=== PATIENT | male | born 1980 | race Caucasian/White ===

== ENCOUNTER 2019-09-23 01:01 | Emergency (ER) | payer OTHER, SELFPAY ==
[2019-09-23 01:02] VITALS: BP 150/99; PULSE 104; RESP 20; TEMP 37.1; O2SAT 97; BMI 32.3
--- NOTE | 2019-09-23 01:16 | EKG12_ITS ---
Test Reason : PALPITATIONS Blood Pressure : / mmHG Vent. Rate : 103 BPM Atrial Rate : 103 BPM P-R Int : 188 ms QRS Dur : 090 ms QT Int : 342 ms P-R-T Axes : 038 033 034 degrees QTc Int : 448 ms Sinus tachycardia Otherwise normal ECG Confirmed by GWENDOLYN NGUYEN, OLESYA ([id number]), editor dictionary JOSI ZAMORA ([id number]) on 09/26/2019 12:31:26 PM Referred By: MAE Confirmed By:OLESYA SNOW MD
--- NOTE | 2019-09-23 01:16 | ED.VIS.GEN ---
History of Present Illness Chief Complaint: Palpitations Informant: Patient Narrative: Stated he has a history of PVCs and was on a beta-ky remotely several years ago. Has not been on this however for some time. Developed some palpitations tonight thinks he might have a recurrent PVCs. He drinks a few cups of Diet Coke per day as well as 1 coffee. Denies any other stimulants. He has seen cardiology for this approximately 10 years ago. Denies any other symptoms. He noticed after dinner he started having palpitations. Currently he is having no symptoms. Denies other cardiac history. Past Medical History - Allergies and Home Meds Allergies/Adverse Reactions: Allergies Sulfa (Sulfonamide Antibiotics) Allergy (Verified 09/23/19 01:05) FASH AND FEVER Primary Care Physician: NOT,DEFINED [NON-STAFF] - Prior records reviewed: Yes Past Medical History: - - PVCs Surgical History: noncontributory Lives: With Family Smoking Status: Never smoker Alcohol: None Drugs: None Review of Systems General: Denies: Chills, Fever, Sweats Eyes: Denies: Visual changes - bilaterally, Diplopia ENT: Denies: Rhinorrhea, Sore throat Cardiovascular: Reports: Palpitations. Denies: Chest pain Respiratory: Denies: Dyspnea, Cough, Dyspnea on exertion Gastrointestinal: Denies: Abdominal pain, Nausea, Vomiting, Diarrhea, Melena, Hematochezia Genitourinary: Denies: Dysuria, Hematuria, Frequency Musculoskeletal: Denies: Back pain, Extremity Pain Skin: Denies: Rash, Wounds Neurological: Denies: Headache, Weakness, Numbness Physical Exam Vital Signs/Narrative: Vital Signs Temp Pulse Resp BP Pulse Ox 09/23/19 01:02 98.7 F 104 H 20 H 150/99 H 97 General: Well nourished, Well developed, No Acute Distress Head: Normocephalic, Atraumatic Eyes: Perrl, EOMI ENT: Moist mucous membranes, No rhinorrhea Neck: Supple, Nontender Cardiovascular: Regular rate, Regular rhythm, No murmurs Respiratory: No distress, CTA bilaterally, Chest nontender Abdomen: Soft, Nontender, Nondistended, Normal bowel sounds Back: Nontender, Normal Inspection Extremities: Nontender, No edema Skin: Normal color, No rash Neurological: Alert, Oriented x3, Cranial nerves II-XII grossly intact, Normal Strength, Normal Sensation Psychological: Normal affect, Normal Mood Diagnostic/Tx/Re-eval - Medical Decision Making EKG obtained shows sinus rhythm at a rate of 103. No ischemia or arrhythmia. Patient watched on the monitor without symptoms. Patient be discharged with a Holter monitor to follow-up as an outpatient with his family doctor who can interpret the results. Instructed to try to avoid stimulants including caffeine. I suspect he is having recurrent PVCs. ED Disposition - Plan for ED Patient: Disposition: Home or Assisted Living Diagnosis: Palpitations Instructions: Palpitations Referrals: NOT,DEFINED [NON-STAFF] -
[2019-09-23 02:07] VITALS: BP 121/78; PULSE 84; RESP 18; O2SAT 98
--- NOTE | 2019-09-23 02:07 | ED.RN ---
THIS NURSE REVIEWED D/C INSTRUCTIONS WITH PT. PT VERBALIZED UNDERSTANDING OF INSTRUCTIONS. PT DENIES HOLTER MONITOR. PT DENIES FURTHER NEEDS OR QUESTIONS AT THIS TIME. PT AMBULATES FROM ROOM ON OWN WITHOUT ASSISTANCE FROM STAFF
== END 2019-09-23 02:09 | disposition home or self-care (01) ==
PROVIDERS: Emergency Provider Emergency Medicine
DX: R00.2 Palpitations (principal)
CPT/HCPCS: 93005; 99282

== ENCOUNTER 2020-12-14 13:44 | Outpatient (RCR) | payer OTHER, SELFPAY | END 2021-02-26 23:59 | LOC: IMMUN 13:44 | PROVIDERS: Referring Provider Family Medicine; Visit Provider Family Medicine | DX: Z23 Encounter for immunization (principal) | CPT/HCPCS: 0001A; 0002A; 91300 ==

== ENCOUNTER 2021-09-24 14:06 | Outpatient (CLI) | payer OTHER, SELFPAY | END 2021-09-24 23:59 | disposition short-term general hospital (02) | LOC: LABSPEC 14:10 | PROVIDERS: Visit Provider Nurse Practitioner Family | DX: M79.10 Myalgia, unspecified site (principal); R51.9 Headache, unspecified | CPT/HCPCS: 87635; U0003; U0005 ==

== ENCOUNTER 2022-01-07 13:13 | Outpatient (CLI) | payer OTHER, SELFPAY ==
[2022-01-07 13:50] LABS: Free T3 3.2 pg/mL (2.18-3.98); T4 Free Direct 1.36 ng/dL (0.76-1.46); Thyroid Stim Hormone (TSH) 0.79 uIU/mL (0.358-3.74)
== END 2022-01-07 23:59 | disposition home or self-care (01) ==
PROVIDERS: Visit Provider Nurse Practitioner Family
DX: E03.9 Hypothyroidism, unspecified (principal)
CPT/HCPCS: 84436; 84439; 84443; 84481

== ENCOUNTER → 2022-08-05 | Outpatient (CLI) | payer OTHER, SELFPAY ==
[2022-08-05 20:26] LABS: Absolute Lymphocyte Count 1.87 X10^3/uL (0.83-4.51); Absolute Neutrophil Count 4.3 X10^3/uL (2.0-7.7); Basophil# 0.07 X10^3/uL; Eosinophil# 0.18 X10^3/uL; Eosinophils% 2.5 % (0-5); Hematocrit 46.3 % (40-54); Hemoglobin 16.2 g/dL (13.0-16.5); Lymphocyte # 1.87 X10^3/ul (0.83-4.51); Lymphocyte % 26.3 % (19-41); Mean Corpuscular Hgb 28.3 pg (27.0-32.0); Mean Corpuscular Volume 80.9 fL (80-94); Mean Platelet Vol. 10.7 fl (6.2-12.0); Monocyte# 0.61 X10^3/uL; Monocyte% 8.6 % (0-10); NRBC Flagged by Analyzer 0 % (0-5); Neutrophil # 4.34 X10^3/uL (2.7-7.7); Neutrophil % 61.2 % (47-70); Platelet Count 291 K/mm3 (150-450); RBC Distribution Width CV 12.9 % (11.6-14.6); Red Blood Count 5.72 M/mm3 (4.6-6.2); White Blood Count 7.1 K/mm3 (4.4-11.0)
[2022-08-05 20:46] LABS: ALB/GLOB Ratio 1.4 RATIO (0.9-2.4); AST(SGOT) 17 U/L (15-37); Alanine Aminotransfer ALT/SGPT 38 U/L (16-61); Albumin, Serum 4.2 g/dL (3.2-5.0); Alkaline Phosphatase 52 U/L (45-117); Anion Gap 10 (5-15); BUN 18 mg/dL (7-18); BUN/Creat Ratio 18.8 RATIO (10-20); Calcium,Total 9.4 mg/dL (8.5-10.1); Chloride 105 mmol/L (98-107); Cholesterol 182 mg/dL (200); Creatinine, Serum 0.96 mg/dL (0.70-1.30); EST Glomerular Filtration Rate 91 mL/min (>60); Est Glom Filt Rate - Afr Amer 110 mL/min (>60); Glucose 79 mg/dL (74-106); High Density Lipoprotein 45 mg/dL; PSA,Total - Annual Screen 3.82 ng/mL (0.00-4.00); Potassium 3.9 mmol/L (3.5-5.1); Protein, Total 7.2 g/dL (6.4-8.2); Sodium Level 141 mmol/L (136-145); Triglycerides 91 mg/dL; Very Low Density Lipoprotein 18 mg/dL (5-40)
[2022-08-05 21:19] LABS: Hemoglobin A1c 4.6 % (3.8-5.6)
== END | disposition home or self-care (01) ==
PROVIDERS: Visit Provider Nurse Practitioner Family
DX: E03.9 Hypothyroidism, unspecified (principal); I10 Essential (primary) hypertension; Z12.5 Encounter for screening for malignant neoplasm of prostate
CPT/HCPCS: 80053; 80061; 82306; 83036; 84153; 85025; G0103

== ENCOUNTER 2023-03-06 22:33 | Emergency (ER) | payer OTHER, SELFPAY ==
[2023-03-06 22:35] VITALS: BP 136/101; PULSE 94; RESP 20; TEMP 36.3; BMI 29.9
[2023-03-06 22:47] VITALS: BP 141/97; PULSE 90; RESP 12
--- NOTE | 2023-03-06 23:16 | RAD_ITS ---
EXAM: XR CHEST, 1 VIEW CLINICAL INDICATION: chest pain TECHNIQUE: Frontal view of the chest. COMPARISON: No relevant prior studies available. FINDINGS: LUNGS AND PLEURAL SPACES: Unremarkable. No consolidation or edema. No pneumothorax. No effusion. HEART: Unremarkable. Cardiac silhouette not enlarged. MEDIASTINUM: Central airways and mediastinal contour are unremarkable. BONES/JOINTS: Thoracic spine degenerative spurring. No acute osseous abnormality. SOFT TISSUES: Unremarkable. RAD/Chest 1 View (Portable) IMPRESSION: No radiographic evidence of acute cardiopulmonary disease. Electronically Signed: Earle Ren MD at 0:07 EDT ,
--- NOTE | 2023-03-06 23:16 | EKG12_ITS ---
Test Reason : PALP Blood Pressure : / mmHG Vent. Rate : 089 BPM Atrial Rate : 089 BPM P-R Int : 210 ms QRS Dur : 092 ms QT Int : 348 ms P-R-T Axes : 039 041 036 degrees QTc Int : 423 ms Sinus rhythm with 1st degree A-V block Otherwise normal ECG Confirmed by JONNATHAN NGUYEN, IGNACIO ([id number]), manager editorial JOSI ZAMORA ([id number]) on 03/09/2023 10:57:16 A M Referred By: Confirmed By:CHRIST DE SANTIAGO MD
[2023-03-06 23:45] LABS: Absolute Lymphocyte Count 6.24 X10^3/uL (0.83-4.51); Absolute Neutrophil Count 5.4 X10^3/uL (2.0-7.7); Basophil# 0.19 X10^3/uL; Basophil% 1.4 % (0-1); Eosinophil# 0.41 X10^3/uL; Hematocrit 48.2 % (40-54); Hemoglobin 16.9 g/dL (13.0-16.5); Lymphocyte # 6.24 X10^3/ul (0.83-4.51); Lymphocyte % 46.1 % (19-41); Mean Corp Hgb Conc 35.1 g/dL (32-36); Mean Corpuscular Hgb 28.5 pg (27.0-32.0); Mean Corpuscular Volume 81.4 fL (80-94); Mean Platelet Vol. 9.6 fl (6.2-12.0); Monocyte% 8.9 % (0-10); NRBC Flagged by Analyzer 0 % (0-5); Neutrophil # 5.39 X10^3/uL (2.7-7.7); Neutrophil % 39.8 % (47-70); POSITIVE DIFFERENTIAL YES; POSITIVE MORPHOLOGY YES; Platelet Count 410 K/mm3 (150-450); RBC Distribution Width CV 12.2 % (11.6-14.6); RBC Distribution Width SD 35.7 fl (35.1-43.9); Red Blood Count 5.92 M/mm3 (4.6-6.2); White Blood Count 13.5 K/mm3 (4.4-11.0)
--- NOTE | 2023-03-07 00:04 | EDS_ITS ---
HPI History of Present Illness Chief Complaint: Palpitations Narrative Narrative: 42-year-old male presenting with palpitations. He states he started while he was at home getting ready for bed. He states after about 5 minutes of the palpitations he started feeling lightheaded and dizzy. He called EMS. Patient states that the symptoms in total lasted about 15 minutes to 20 minutes. Patient states her symptoms are completely resolved. Patient reports a history of PVCs in the past. He states he wore a Holter monitor and all this all was PVCs. He does not report any chest pressure. No history of SVT or other dysrhythmias. No cardiac history. He states he has a history of hypothyroidism and hypertension. No fevers or chills. No history of DVT/PE and no risk factors. [facility] Medical History HTN (hypertension) Hypothyroid PVC (premature ventricular contraction) Home Medications levothyroxine 125 mcg tablet 125 mcg PO DAILY 09/23/19 [History Last Taken Unknown] losartan 50 mg tablet 50 mg PO DAILY 03/06/23 [History Last Taken Unknown] potassium chloride 40 mEq/15 mL oral liquid 40 meq (15 mL) PO DAILY 2 days #30 mL 03/07/23 [Rx Last Taken Unknown] Allergy/AdvReac Type Severity Reaction Status Date / Time Sulfa (Sulfonamide Allergy [facility] Verified 09/23/19 01:05 Antibiotics) FEVER Corticosteroids AdvReac Other Verified 03/06/23 22:47 (Glucocorticoids) [steriods] Family History Mother Hypertension Diabetes Father Hypertension Diabetes Surgical History H/O wisdom tooth extraction Social History household members: family Smoking Status: Never smoker ROS ROS ED Constitutional Constitutional ED: Denies chills, fever(s) or sweats Eyes Eyes: Denies blurry vision or change in vision ENT ENT ED: Denies ear pain or sore throat Cardiovascular Cardiovascular: Reports racing heartbeat and other Details: Lightheadedness ; Denies palpitations Respiratory/Chest Respiratory/Chest: Reports dyspnea; Denies cough or sputum Gastrointestinal Gastrointestinal: Denies abdominal pain, constipation, diarrhea, nausea or vomiting Genitourinary Genitourinary ED: Denies dysuria, hematuria or urinary frequency Musculoskeletal Musculoskeletal: Denies arthralgias, myalgias or neck pain Integumentary Denies abscess, Abrasions or rash Neurologic Neurologic: Denies headache(s), paresthesias or weakness Psychiatric Psychiatric: Denies anxiety, depression, suicidal ideation or suicidal thoughts Endocrine Endocrinology: Denies polydipsia or polyuria EXAM Physical Exam Const Vital Signs: 03/06/23 22:35 03/06/23 22:45 03/06/23 22:47 Temperature 97.3 F L Temperature Source Temporal Pulse Rate 94 90 Pulse Rate [Lying] Pulse Rate [Sitting (for 1 minute prior to obtaining)] Pulse Rate [Standing (for 1 minute prior to obtaining)] Respiratory Rate 20 H 12 Respiratory Effort Normal Non-Labored Blood Pressure 136/101 H 141/97 H Blood Pressure [Lying] Blood Pressure [Sitting (for 1 minute prior to obtaining)] Blood Pressure [Standing (for 1 minute prior to obtaining)] Blood Pressure Mean 112 111 Blood Pressure Mean [Lying] Blood Pressure Mean [Sitting (for 1 minute prior to obtaining)] Blood Pressure Mean [Standing (for 1 minute prior to obtaining)] Pulse Ox Oxygen Delivery Method 03/06/23 23:39 03/07/23 00:09 03/07/23 01:34 Temperature Temperature Source Pulse Rate 90 Pulse Rate [Lying] 93 Pulse Rate [Sitting (for 1 minute prior to obtaining)] 94 Pulse Rate [Standing (for 1 minute prior to obtaining)] 104 H Respiratory Rate 16 Respiratory Effort Blood Pressure Blood Pressure [Lying] 123/87 H Blood Pressure [Sitting (for 1 minute prior to obtaining)] 126/96 H Blood Pressure [Standing (for 1 minute prior to obtaining)] 143/107 H Blood Pressure Mean Blood Pressure Mean [Lying] 99 Blood Pressure Mean [Sitting (for 1 minute prior to obtaining)] 106 Blood Pressure Mean [Standing (for 1 minute prior to obtaining)] 119 Pulse Ox Oxygen Delivery Method Room Air 03/07/23 02:52 Temperature Temperature Source Pulse Rate 72 Pulse Rate [Lying] Pulse Rate [Sitting (for 1 minute prior to obtaining)] Pulse Rate [Standing (for 1 minute prior to obtaining)] Respiratory Rate 15 Respiratory Effort Blood Pressure 141/67 H Blood Pressure [Lying] Blood Pressure [Sitting (for 1 minute prior to obtaining)] Blood Pressure [Standing (for 1 minute prior to obtaining)] Blood Pressure Mean Blood Pressure Mean [Lying] Blood Pressure Mean [Sitting (for 1 minute prior to obtaining)] Blood Pressure Mean [Standing (for 1 minute prior to obtaining)] Pulse Ox 98 Oxygen Delivery Method Positive well nourished General Appearance ED: NAD; Negative for pallor HEENT Reports moist mucous membranes normocephalic and atraumatic Eyes PERRL and EOMs intact bilaterally Resp normal respiratory effort and clear to auscultation bilaterally Auscultation: Negative for rales, rhonchi or wheezes Cardio regular rate and S1 normal heart sound Back/Spine no CVA tenderness Neuro oriented x3 and CN's II-XII intact bilaterally Sensorium / Orientation: awake and alert Motor Exam: strength 5/5 throughout Psych mental status grossly normal Skin no rashes or lesions noted General Skin Exam: Negative for jaundice or pallor Heart Score History: Slightly/Non-Suspicious ECG: Normal Age: </= 45 years Risk Factors: 1 or 2 Risk Factors Score: 1 MDM MDM MDM Narrative Medical decision making narrative: Patient presented with palpitations, lightheadedness, shortness of breath and fast about 15 minutes. Denies any chest pain. No history of cardiac disease other than PVCs in the past. He had a Holter monitor for this. Differential includes but is not limited to ACS, pneumonia, dehydration, electrolyte abnormalities, PVCs, SV, orthostatic hypotension. Considered PE however the patient does not have any chest pain and his episode is resolved. CBC to assess for blood cell count, hemoglobin, platelets, differential. BMP to assess renal function, electrolytes, glucose, anion gap. High-sensitivity troponin, EKG to assess for arrhythmia and ischemia. Chest x-ray to rule out pneumonia. Orthostatic vital signs will be obtained. EKG shows a normal sinus rhythm with a ventricular rate of 89 bpm without sign of ischemia but does show first-degree AV block, on my interpretation. CBC shows a mild leukocytosis at 13.5. This is likely reactive. There is no left shift. Renal function is normal. Electrolytes show potassium low at 2.6. This was repleted orally with 40 mill equivalents. Magnesium was checked and is normal. High-sensitivity troponin initially 9 delta troponin 26 therefore does not change and 20. Patient was given a prescription for 40 mg once of potassium p.o. x2 days. He was given a follow-up with cardiology. It is possible he could have an SVT. I think he would benefit from Holter monitor. Return precautions given. Impression: 1. Palpitations 2. Lightheadedness Lab Data Attestation: I reviewed the patient's lab results. Labs: Laboratory Results - last 24 hr 03/06/23 03/06/23 03/06/23 22:10 22:16 22:16 WBC 13.5 H RBC 5.92 Hgb 16.9 H Hct 48.2 MCV 81.4 MCH 28.5 MCHC 35.1 RDW Std Deviation 35.7 RDW Coeff of Clement 12.2 Plt Count 410 MPV 9.6 Immature Gran % (Auto) 0.800 Neut % (Auto) 39.8 L Lymph % (Auto) 46.1 H Payette % (Auto) 8.9 Eos % (Auto) 3.0 Baso % (Auto) 1.4 H Absolute Neuts (auto) 5.4 Absolute Lymphs (auto) 6.24 H Nucleated RBC % 0 Differential Comment SCANNED Atypical Lymphocytes 2+ Sodium 141 Potassium 2.6 L* Chloride 103 Carbon Dioxide 28.0 Anion Gap 10 BUN 12 Creatinine 1.23 Estim Creat Clear Calc 76.64 Est GFR (MDRD) Af Amer 82 Est GFR (MDRD) Non-Af 68 BUN/Creatinine Ratio 9.8 L Glucose 81 Calcium 9.5 Magnesium 2.5 Troponin I High Sens 9 03/07/23 00:46 WBC RBC Hgb Hct MCV MCH MCHC RDW Std Deviation RDW Coeff of Clement Plt Count MPV Immature Gran % (Auto) Neut % (Auto) Lymph % (Auto) Payette % (Auto) Eos % (Auto) Baso % (Auto) Absolute Neuts (auto) Absolute Lymphs (auto) Nucleated RBC % Differential Comment Atypical Lymphocytes Sodium Potassium Chloride Carbon Dioxide Anion Gap BUN Creatinine Estim Creat Clear Calc Est GFR (MDRD) Af Amer Est GFR (MDRD) Non-Af BUN/Creatinine Ratio Glucose Calcium Magnesium Troponin I High Sens 26 Radiography Diagnostic Testing: Clinical Impression(s) from Imaging Studies Chest X-Ray 03/06/23 23:16 IMPRESSION: No radiographic evidence of acute cardiopulmonary disease. Electronically Signed: Earle Ren MD at 0:07 EDT , Discharge Plan Triage Chief Complaint: Palpitations ED Provider: Derek Álvarez Dx/Rx/DC Orders Instructions: ED Palpitations Prescriptions: New potassium chloride 40 mEq/15 mL liquid 40 meq PO DAILY 2 Days Qty: 30 0RF No Action levothyroxine 125 MCG tablet 125 mcg PO DAILY losartan 50 mg tablet 50 mg PO DAILY Label Comments: TAKE 1 TABLET BY MOUTH EVERY DAY Primary Care Provider: Kourtney Perez NP Referrals: Eduardo Smith MD [Med Staff - Active Staff] - 3-5 Days Kourtney Perez WARE CLEANER, WARE CLEANER-C [Primary Care Provider] - Disposition Disposition: Home, Self Care Discharge Date/Time: 03/07/23 02:53
[2023-03-07 00:05] LABS: Differential Indicated SCAN CRITERIA MET
[2023-03-07 00:09] VITALS: BP 123/87; BP 126/96; BP 143/107; PULSE 104; PULSE 93; PULSE 94
[2023-03-07 00:10] LABS: Anion Gap 10 (5-15); BUN 12 mg/dL (7-18); BUN/Creat Ratio 9.8 RATIO (10-20); Calcium,Total 9.5 mg/dL (8.5-10.1); Chloride 103 mmol/L (98-107); Creatinine, Serum 1.23 mg/dL (0.70-1.30); EST Glomerular Filtration Rate 68 mL/min (>60); Est Glom Filt Rate - Afr Amer 82 mL/min (>60); Estimated Creatinine Clearance 76.64 ml/min; Glucose 81 mg/dL (74-106); Potassium 2.6 mmol/L (3.5-5.1); Sodium Level 141 mmol/L (136-145); Troponin-I HS 9 pg/mL (3.0-78.0)
[2023-03-07 00:26] LABS: Atypical Lymphocyte 2+ %; Differential Comment SCANNED
[2023-03-07 00:28] LABS: Magnesium 2.5 mg/dL (1.6-2.6)
[2023-03-07] MEDS: 0.9% Normal Saline 1,000 ML 999 ML IV (00:40)
[2023-03-07] MEDS: Potassium Chloride Oral Tablet 20 MEQ 40 MEQ PO (00:41)
[2023-03-07 01:34] VITALS: PULSE 90; RESP 16
[2023-03-07 02:25] LABS: Troponin-I HS 26 pg/mL (3.0-78.0)
[2023-03-07 02:52] VITALS: BP 141/67; PULSE 72; RESP 15; O2SAT 98
== END 2023-03-07 02:53 | disposition home or self-care (01) ==
PROVIDERS: Emergency Provider Student in an Organized Health Care Education/Training Program; PCP Nurse Practitioner Family; Visit Provider Student in an Organized Health Care Education/Training Program
DX: R00.2 Palpitations (principal); R42 Dizziness and giddiness; I10 Essential (primary) hypertension; E03.9 Hypothyroidism, unspecified; Z79.899 Other long term (current) drug therapy
CPT/HCPCS: 71045; 80048; 83735; 84484; 85025; 93005; 96360; 99285; J7030; A4216

== ENCOUNTER → 2023-03-09 | Outpatient (CLI) | payer OTHER, SELFPAY ==
[2023-03-09 17:04] LABS: Absolute Lymphocyte Count 1.78 X10^3/uL (0.83-4.51); Absolute Neutrophil Count 5.4 X10^3/uL (2.0-7.7); Basophil% 1.3 % (0-1); Eosinophil# 0.13 X10^3/uL; Eosinophils% 1.6 % (0-5); Hematocrit 44.5 % (40-54); Hemoglobin 15.6 g/dL (13.0-16.5); Lymphocyte # 1.78 X10^3/ul (0.83-4.51); Lymphocyte % 22.3 % (19-41); Mean Corp Hgb Conc 35.1 g/dL (32-36); Mean Corpuscular Hgb 28.4 pg (27.0-32.0); Mean Corpuscular Volume 80.9 fL (80-94); Mean Platelet Vol. 9.6 fl (6.2-12.0); Monocyte% 6.3 % (0-10); NRBC Flagged by Analyzer 0 % (0-5); Neutrophil # 5.41 X10^3/uL (2.7-7.7); Neutrophil % 67.7 % (47-70); Platelet Count 304 K/mm3 (150-450); RBC Distribution Width CV 12.1 % (11.6-14.6); RBC Distribution Width SD 35.4 fl (35.1-43.9)
[2023-03-09 17:50] LABS: ALB/GLOB Ratio 1.1 RATIO (0.9-2.4); AST(SGOT) 12 U/L (15-37); Alanine Aminotransfer ALT/SGPT 27 U/L (16-61); Albumin, Serum 3.8 g/dL (3.2-5.0); Alkaline Phosphatase 54 U/L (45-117); Anion Gap 6 (5-15); BUN 12 mg/dL (7-18); BUN/Creat Ratio 12.2 RATIO (10-20); Calcium,Total 8.8 mg/dL (8.5-10.1); Chloride 106 mmol/L (98-107); Cholesterol 176 mg/dL (200); Creatinine, Serum 0.98 mg/dL (0.70-1.30); EST Glomerular Filtration Rate 88 mL/min (>60); Est Glom Filt Rate - Afr Amer 106 mL/min (>60); Globulin 3.5 g/dL (2.2-4.2); Glucose 100 mg/dL (74-106); High Density Lipoprotein 66 mg/dL; Potassium 3.3 mmol/L (3.5-5.1); Protein, Total 7.3 g/dL (6.4-8.2); Sodium Level 138 mmol/L (136-145); T4 Free Direct 1.05 ng/dL (0.76-1.46); Thyroid Stim Hormone (TSH) 4.77 uIU/mL (0.358-3.74); Triglycerides 109 mg/dL; Uric Acid 4.3 mg/dL (3.5-7.2); Very Low Density Lipoprotein 22 mg/dL (5-40)
[2023-03-09 17:52] LABS: Vitamin B12 275 pg/mL (211-911); Vitamin D,25 Hydroxy 34.7 ng/mL
[2023-03-13 16:09] LABS: B. henselae IgG Negative titer (Neg:<1:320); B. henselae IgM Negative titer (Neg:<1:100); B. quintana IgG Negative titer (Neg:<1:320); B. quintana IgM Negative titer (Neg:<1:100); Lyme IgG P18 Ab Absent (.); Lyme IgG P23 Ab Absent (.); Lyme IgG P28 Ab Absent (.); Lyme IgG P30 Ab Absent (.); Lyme IgG P39 Ab Absent (.); Lyme IgG P41 Ab Absent (.); Lyme IgG P45 Ab Absent (.); Lyme IgG P58 Ab Absent (.); Lyme IgG P66 Ab Absent (.); Lyme IgG P93 Ab Absent (.); Lyme IgG WB Interpretation Negative (.); Lyme IgM P23 Ab Absent (.); Lyme IgM P39 Ab Absent (.); Lyme IgM P41 Ab Absent (.); Lyme IgM WB Interpretation Negative (.)
== END | disposition home or self-care (01) ==
PROVIDERS: PCP Nurse Practitioner Family; Referring Provider Nurse Practitioner Family; Visit Provider Nurse Practitioner Family
DX: R00.0 Tachycardia, unspecified (principal); I10 Essential (primary) hypertension; F41.9 Anxiety disorder, unspecified; I49.3 Ventricular premature depolarization; M25.50 Pain in unspecified joint; R53.83 Other fatigue; R53.81 Other malaise; R50.9 Fever, unspecified
CPT/HCPCS: 36415; 80053; 80061; 82306; 82607; 84439; 84443; 84550; 85025; 86611; 86617

== ENCOUNTER → 2023-03-25 | Outpatient (CLI) | payer OTHER, SELFPAY | END | disposition home or self-care (01) | PROVIDERS: PCP Nurse Practitioner Family; Visit Provider Nurse Practitioner Family | DX: R00.0 Tachycardia, unspecified (principal); I10 Essential (primary) hypertension; F41.9 Anxiety disorder, unspecified; I49.3 Ventricular premature depolarization; E87.6 Hypokalemia; E61.7 Deficiency of multiple nutrient elements | CPT/HCPCS: 36415; 82525; 84207; 84425 ==

== ENCOUNTER → 2023-03-31 | Outpatient (CLI) | payer OTHER, SELFPAY ==
[2023-03-31 16:16] LABS: Absolute Lymphocyte Count 1.93 X10^3/uL (0.83-4.51); Basophil# 0.09 X10^3/uL; Basophil% 1.6 % (0-1); Eosinophil# 0.16 X10^3/uL; Eosinophils% 2.9 % (0-5); Hematocrit 43.1 % (40-54); Hemoglobin 15.3 g/dL (13.0-16.5); Lymphocyte # 1.93 X10^3/ul (0.83-4.51); Lymphocyte % 34.6 % (19-41); Mean Corp Hgb Conc 35.5 g/dL (32-36); Mean Corpuscular Hgb 28.5 pg (27.0-32.0); Mean Corpuscular Volume 80.4 fL (80-94); Mean Platelet Vol. 10.3 fl (6.2-12.0); Monocyte# 0.39 X10^3/uL; NRBC Flagged by Analyzer 0 % (0-5); Neutrophil # 2.96 X10^3/uL (2.7-7.7); Neutrophil % 53.2 % (47-70); Platelet Count 266 K/mm3 (150-450); RBC Distribution Width CV 12.5 % (11.6-14.6); RBC Distribution Width SD 35.6 fl (35.1-43.9); Red Blood Count 5.36 M/mm3 (4.6-6.2); White Blood Count 5.6 K/mm3 (4.4-11.0)
[2023-03-31 19:18] LABS: ALB/GLOB Ratio 1.3 RATIO (0.9-2.4); AST(SGOT) 18 U/L (15-37); Alanine Aminotransfer ALT/SGPT 35 U/L (16-61); Albumin, Serum 3.9 g/dL (3.2-5.0); Alkaline Phosphatase 46 U/L (45-117); Anion Gap 6 (5-15); BUN 9 mg/dL (7-18); BUN/Creat Ratio 9.1 RATIO (10-20); Calcium,Total 9.3 mg/dL (8.5-10.1); Chloride 108 mmol/L (98-107); Creatinine, Serum 0.99 mg/dL (0.70-1.30); EST Glomerular Filtration Rate 87 mL/min (>60); Est Glom Filt Rate - Afr Amer 105 mL/min (>60); Glucose 76 mg/dL (74-106); Potassium 4.3 mmol/L (3.5-5.1); Protein, Total 6.9 g/dL (6.4-8.2); Sodium Level 141 mmol/L (136-145)
== END | disposition home or self-care (01) ==
LOC: LAB 15:47
PROVIDERS: PCP Nurse Practitioner Family; Referring Provider Nurse Practitioner Family; Visit Provider Nurse Practitioner Family
DX: R00.0 Tachycardia, unspecified (principal); I10 Essential (primary) hypertension
CPT/HCPCS: 80053; 85025

== ENCOUNTER 2023-05-03 14:40 | Emergency (ER) | payer OTHER, SELFPAY ==
[2023-05-03 14:41] VITALS: BP 131/102; PULSE 93; RESP 18; TEMP 36.2; O2SAT 98; BMI 29.9
--- NOTE | 2023-05-03 14:52 | EKG12_ITS ---
Test Reason : palps Blood Pressure : / mmHG Vent. Rate : 083 BPM Atrial Rate : 083 BPM P-R Int : 186 ms QRS Dur : 088 ms QT Int : 340 ms P-R-T Axes : 028 033 015 degrees QTc Int : 399 ms Normal sinus rhythm Normal ECG Confirmed by JOSE PRYOR ([id number]), medical transcription editor SHANIKA THOMAS ([id number]) on 05/11/2023 1:59:35 PM Referred By: Sanjay Confirmed By:JOSE PRYOR
[2023-05-03 14:54] VITALS: BP 140/87; PULSE 82; RESP 15; O2SAT 98
--- NOTE | 2023-05-03 14:56 | ED.VIS.CHEST ---
HPI History of Present Illness Chief Complaint: Palpitations Informant: patient Onset/Context/Timing Onset: Today and Hours Activity at onset: gradual Timing: Continuous Current Severity: Mild Maximum Severity: Mild Relieved By: Nothing Associated Symptoms: Positive for Palpitations; Negative for Nausea, Vomiting, Diaphoresis, Dyspnea, Cough, Fever, Lightheadedness or Acid Reflux Narrative Narrative: 42-year-old male history of palpitations and high both kalemia. States today at home he is presently feeling great. He just felt weird. Really denies any chest pain. And about 30 minutes ago started having palpitations. He has a history of palpitations and PVCs for the last 25 years. No other cardiac history. He said he did take a propranolol which is a prescription for home. No history of DVT or PE. No leg pain or swelling. No hemoptysis. Prior Similar Symptoms: Yes Recent Illness/Hospitalization: No CVD Risk Factors: Positive for Hypertension PE Risk Factors: Negative for Prior DVT or PE, Cancer or OCP + Smoking + >/=35 PFSH PFSH Medical History HTN (hypertension) Hypothyroid PVC (premature ventricular contraction) no medical history Home Medications levothyroxine 125 mcg tablet 125 mcg PO DAILY 09/23/19 [History Last Taken Unknown] losartan 50 mg tablet 50 mg PO DAILY 03/06/23 [History Last Taken Unknown] potassium chloride 40 mEq/15 mL oral liquid 40 meq (15 mL) PO DAILY 2 days #30 mL 03/07/23 [Rx Last Taken Unknown] Allergy/AdvReac Type Severity Reaction Status Date / Time Sulfa (Sulfonamide Allergy [facility] Verified 05/03/23 14:41 Antibiotics) FEVER Corticosteroids AdvReac Other Verified 05/03/23 14:41 (Glucocorticoids) [steriods] Family History Mother Hypertension Diabetes Father Hypertension Diabetes Surgical History H/O wisdom tooth extraction Social History household members: family Smoking Status: Never smoker ROS ROS ED ROS Narrative Palpitations. Review of Systems ROS Unobtainable: Denies due to encephalopathy Constitutional Constitutional ED: Denies chills or fever(s) Eyes Eyes: Reports none ENT ENT ED: Denies ear pain Cardiovascular Cardiovascular: Reports as per HPI and palpitations; Denies chest pain or racing heartbeat Respiratory/Chest Respiratory/Chest: Denies cough or dyspnea Gastrointestinal Gastrointestinal: Reports diarrhea; Denies abdominal pain Genitourinary Genitourinary ED: Denies dysuria or hematuria Musculoskeletal Musculoskeletal: Denies arthralgias Integumentary Denies abscess Neurologic Neurologic: Denies headache(s) Psychiatric Psychiatric: Denies anxiety Endocrine Endocrinology: Denies cold intolerance Hematologic/Lymphatic Hematologic/Lymphatic: Denies easy bleeding or easy bruising Allergic/Immunologic Allergic/Immunologic ED: Denies mouth swelling or tongue swelling EXAM Physical Exam Narrative Exam Narrative: Well-appearing 42-year-old male. Vital signs stable afebrile. Pulse ox 98% on room air no hypoxia. He is in no distress. HEENT exam unremarkable. Moist extremities. Neck nontender no JVD. Lungs clear to auscultation. Heart regular rhythm rate about 80 no murmur. Chest were nontender. Abdomen is soft nontender. Moving all 4 extremities. Calves are nontender without edema or cords. Equal symmetrical radial pulses. Neurologic exam is awake alert with no focal motor deficits. Const Vital Signs: 05/03/23 14:41 05/03/23 14:54 05/03/23 15:05 Temperature 97.1 F L Temperature Source Temporal Pulse Rate 93 82 Respiratory Rate 18 15 Blood Pressure 131/102 H 140/87 H Blood Pressure Mean 111 104 Pulse Ox 98 98 Oxygen Delivery Method Room Air Room Air Room Air Positive well nourished and well developed; Negative for obese, cachectic, contractures or unkempt General Appearance ED: well developed and NAD; Negative for unkempt, cachectic, contractures or pallor Nutritional Appearance: Negative for cachectic or obese HEENT Reports moist mucous membranes normocephalic and atraumatic; Negative for trauma or tenderness Eyes PERRL and EOMs intact bilaterally General Eye ED: Negative for pale conjunctiva or scleral icterus Neck no lymphadenopathy, supple and no JVD General: Negative for tenderness Chest Wall inspection of chest normal and palpation of chest normal Chest: Negative for tenderness Resp normal respiratory effort and clear to auscultation bilaterally Effort and Inspection: Negative for respiratory distress Auscultation: Negative for rales, rhonchi or wheezes Cardio regular rate, regular rhythm, S1 normal heart sound, S2 normal heart sound and no murmurs Rate: Negative for bradycardia or tachycardic Rhythm: Negative for abnormal rhythm Peripheral Pulses: pulses 2+ throughout GI normal to inspection, nondistended, normoactive bowel sounds, soft to palpation, non-tender, non-distended and no masses Back/Spine no CVA tenderness and no thoracic nor lumbar tenderness General Back: Negative for CVA tenderness Cervical Spine: Negative for cervical spine tenderness Extremity normal to inspection General Extremety ED: Negative for edema, pulses abnormal or tenderness General Extremity: Negative for edema or pulses abnormal Neuro oriented x3 and CN's II-XII intact bilaterally Sensorium / Orientation: awake, alert, oriented to person, oriented to place and oriented to time; Negative for confused, lethargic or stuporous Motor Exam: strength 5/5 throughout; Negative for general weakness or strength abnormal Psych mental status grossly normal Appearance: Negative for unkempt Attitude: No agitated Mood & Affect: Negative for depressed, anxious or tearful Skin no rashes or lesions noted and no wounds General Skin Exam: Negative for jaundice or pallor Rashes: No rashes noted Trauma: Negative for abrasion or laceration Heart Score History: Slightly/Non-Suspicious ECG: Normal Age: </= 45 years Risk Factors: No Risk Factors Troponin: </= Normal Limit Score: 0 MDM MDM MDM Narrative Medical decision making narrative: 42-year-old with palpitations. Exam benign. Undergo cardiac work-up with negative Carprofen being discharged home. Patient had labs and chest x-ray in the last several months. Chest x-ray is unremarkable I do not think it needs to be repeated. Repeat exam patient doing well at 3:32 PM. We discussed his test results. He is comfortable being discharged home. History & Record Review Discussion w/independent historian: Patient Lab Data Attestation: I reviewed the patient's lab results. Lab results narrative: CBC normal. White count of 7. H&H of 15 and 44. Chemistries unremarkable gap of 8. Normal BUN and creatinine is 0.9. Glucose 143. Troponin normal at 4. Labs: Laboratory Results - last 24 hr 05/03/23 15:00 WBC 7.9 RBC 5.54 Hgb 15.9 Hct 44.9 MCV 81.0 MCH 28.7 MCHC 35.4 RDW Std Deviation 35.6 RDW Coeff of Clement 12.1 Plt Count 277 MPV 9.7 Immature Gran % (Auto) 0.600 Neut % (Auto) 66.1 Lymph % (Auto) 24.1 Dickey % (Auto) 6.4 Eos % (Auto) 2.0 Baso % (Auto) 0.8 Absolute Neuts (auto) 5.2 Absolute Lymphs (auto) 1.91 Nucleated RBC % 0 Sodium 140 Potassium 3.6 Chloride 107 Carbon Dioxide 25.0 Anion Gap 8 BUN 11 Creatinine 0.93 Estim Creat Clear Calc 101.36 Est GFR (MDRD) Af Amer 114 Est GFR (MDRD) Non-Af 94 BUN/Creatinine Ratio 11.9 Glucose 143 H Calcium 9.2 Troponin I High Sens 4 Rhythm Strip Rhythm Strip: Sinus Rhythm Rate: 83 Ectopy: None EKG Initial EKG: Attestation: I personally reviewed and interpreted this EKG as follows: Interpretation: Sinus Rhythm and No Acute Injury Pattern Comments: Normal sinus rhythm rate 83 no acute signs of CT or ischemia. Discharge Plan Triage Chief Complaint: Palpitations ED Provider: Geoff Painting Dx/Rx/DC Orders Clinical Impression: Heart palpitations Instructions: ED Palpitations Prescriptions: No Action levothyroxine 125 MCG tablet 125 mcg PO DAILY losartan 50 mg tablet 50 mg PO DAILY Patient Comments: TAKE 1 TABLET BY MOUTH EVERY DAY potassium chloride 40 mEq/15 mL liquid 40 meq PO DAILY 2 Days Qty: 30 0RF Primary Care Provider: Kourtney Perez LEATHER CARVER Referrals: Kourtney Perez LEATHER CARVER, LEATHER CARVER-C [Primary Care Provider] - As Needed Activity Restrictions/Additional Instructions: Your exam and labs were normal. Your electrolytes and kidney function were normal as was your blood count. Disposition Disposition: Home, Self Care
[2023-05-03 15:19] LABS: Absolute Lymphocyte Count 1.91 X10^3/uL (0.83-4.51); Absolute Neutrophil Count 5.2 X10^3/uL (2.0-7.7); Basophil# 0.06 X10^3/uL; Basophil% 0.8 % (0-1); Eosinophil# 0.16 X10^3/uL; Hematocrit 44.9 % (40-54); Hemoglobin 15.9 g/dL (13.0-16.5); Lymphocyte # 1.91 X10^3/ul (0.83-4.51); Lymphocyte % 24.1 % (19-41); Mean Corp Hgb Conc 35.4 g/dL (32-36); Mean Corpuscular Hgb 28.7 pg (27.0-32.0); Mean Platelet Vol. 9.7 fl (6.2-12.0); Monocyte# 0.51 X10^3/uL; Monocyte% 6.4 % (0-10); NRBC Flagged by Analyzer 0 % (0-5); Neutrophil # 5.24 X10^3/uL (2.7-7.7); Neutrophil % 66.1 % (47-70); Platelet Count 277 K/mm3 (150-450); RBC Distribution Width CV 12.1 % (11.6-14.6); RBC Distribution Width SD 35.6 fl (35.1-43.9); Red Blood Count 5.54 M/mm3 (4.6-6.2); White Blood Count 7.9 K/mm3 (4.4-11.0)
[2023-05-03 15:29] LABS: Anion Gap 8 (5-15); BUN 11 mg/dL (7-18); BUN/Creat Ratio 11.9 RATIO (10-20); Calcium,Total 9.2 mg/dL (8.5-10.1); Chloride 107 mmol/L (98-107); Creatinine, Serum 0.93 mg/dL (0.70-1.30); EST Glomerular Filtration Rate 94 mL/min (>60); Est Glom Filt Rate - Afr Amer 114 mL/min (>60); Estimated Creatinine Clearance 101.36 ml/min; Glucose 143 mg/dL (74-106); Potassium 3.6 mmol/L (3.5-5.1); Sodium Level 140 mmol/L (136-145); Troponin-I HS 4 pg/mL (3.0-78.0)
[2023-05-03 15:37] VITALS: BP 130/99; PULSE 74; RESP 15; O2SAT 97
== END 2023-05-03 15:38 | disposition home or self-care (01) ==
PROVIDERS: Emergency Provider Emergency Medicine; PCP Nurse Practitioner Family; Visit Provider Emergency Medicine
DX: R00.2 Palpitations (principal); I10 Essential (primary) hypertension; E03.9 Hypothyroidism, unspecified; Z79.899 Other long term (current) drug therapy
CPT/HCPCS: 80048; 84484; 85025; 93005; 99284

== ENCOUNTER → 2024-05-25 | Outpatient (CLI) | payer OTHER, SELFPAY ==
[2024-05-25 13:08] LABS: Absolute Lymphocyte Count 1.96 X10^3/uL (0.83-4.51); Absolute Neutrophil Count 3.1 X10^3/uL (2.0-7.7); Basophil# 0.09 X10^3/uL; Basophil% 1.5 % (0-1); Eosinophil# 0.21 X10^3/uL; Eosinophils% 3.6 % (0-5); Hematocrit 46.5 % (40-54); Lymphocyte # 1.96 X10^3/ul (0.83-4.51); Lymphocyte % 33.5 % (19-41); Mean Corp Hgb Conc 34.4 g/dL (32-36); Mean Corpuscular Hgb 28.3 pg (27.0-32.0); Mean Corpuscular Volume 82.2 fL (80-94); Mean Platelet Vol. 10.2 fl (6.2-12.0); Monocyte# 0.44 X10^3/uL; Monocyte% 7.5 % (0-10); NRBC Flagged by Analyzer 0 % (0-5); Platelet Count 272 K/mm3 (150-450); RBC Distribution Width CV 12.5 % (11.6-14.6); RBC Distribution Width SD 37.1 fl (35.1-43.9); Red Blood Count 5.66 M/mm3 (4.6-6.2); White Blood Count 5.9 K/mm3 (4.4-11.0)
[2024-05-25 13:26] LABS: Hemoglobin A1c 4.6 % (3.8-5.6)
[2024-05-25 16:41] LABS: ALB/GLOB Ratio 1.4 RATIO (0.9-2.4); AST(SGOT) 16 U/L (15-37); Alanine Aminotransfer ALT/SGPT 48 U/L (16-61); Albumin, Serum 4.2 g/dL (3.2-5.0); Alkaline Phosphatase 54 U/L (45-117); Anion Gap 5 (5-15); BUN 11 mg/dL (7-18); BUN/Creat Ratio 13.2 RATIO (10-20); Calcium,Total 9.4 mg/dL (8.5-10.1); Chloride 110 mmol/L (98-107); Cholesterol 212 mg/dL (200); Creatinine, Serum 0.83 mg/dL (0.70-1.30); EST Glomerular Filtration Rate 106 mL/min (>60); Est Glom Filt Rate - Afr Amer 128 mL/min (>60); Globulin 3.1 g/dL (2.2-4.2); Glucose 90 mg/dL (74-106); High Density Lipoprotein 61 mg/dL; Potassium 3.8 mmol/L (3.5-5.1); Protein, Total 7.3 g/dL (6.4-8.2); Sodium Level 142 mmol/L (136-145); T4 Free Direct 1.16 ng/dL (0.76-1.46); Triglycerides 92 mg/dL; Very Low Density Lipoprotein 18 mg/dL (5-40)
== END | disposition home or self-care (01) ==
PROVIDERS: PCP Nurse Practitioner Family; Referring Provider Nurse Practitioner Family; Visit Provider Nurse Practitioner Family
DX: R00.0 Tachycardia, unspecified (principal); I10 Essential (primary) hypertension; F41.9 Anxiety disorder, unspecified; I49.3 Ventricular premature depolarization; E03.9 Hypothyroidism, unspecified
CPT/HCPCS: 80053; 80061; 82306; 83036; 84439; 84443; 84481; 85025

== ENCOUNTER → 2025-01-06 | Outpatient (CLI) | payer OTHER, SELFPAY ==
[2025-01-06 19:03] LABS: FOLATES,SERUM (FOLIC ACID) 7.12 ng/mL (4.60-34.80)
[2025-01-06 19:06] LABS: Free T3 2.8 pg/mL (2.18-3.98); Vitamin B12 298 pg/mL (180-914)
[2025-01-09 17:08] LABS: PSA, Total 2.1 ng/mL (0.0-4.0)
== END | disposition home or self-care (01) ==
PROVIDERS: PCP Nurse Practitioner Family; Referring Provider Nurse Practitioner Family; Visit Provider Nurse Practitioner Family
DX: R00.0 Tachycardia, unspecified (principal); I10 Essential (primary) hypertension; F41.9 Anxiety disorder, unspecified; I49.3 Ventricular premature depolarization; E03.9 Hypothyroidism, unspecified; R53.83 Other fatigue; E55.9 Vitamin D deficiency, unspecified
CPT/HCPCS: 82306; 82607; 82746; 84153; 84439; 84443; 84481